=== PATIENT | male | born 1990 | race Caucasian/White ===

== ENCOUNTER 2024-06-08 23:55 | Emergency (ER) | payer OTHER ==
[~2024-06-08] VITALS: Ht 190.5 cm; Wt 104.3 kg
[2024-06-09] MEDS ORDERED: Ondansetron HCl 2 MG / ML 2ML Vial IV ONE (00:10)
[2024-06-09] MEDS ORDERED: Ketorolac Tromethamine 15mg Vial IV ONE (00:10)
[2024-06-09 00:41] LABS: Albumin, Blood 3.9 g/dL (3.4-5.0); Albumin/Globulin Ratio 1.1 (0.8-1.8); Bilirubin, Total 0.4 mg/dL (0.1-1.0); Bun/Creatinine Ratio 10.1 (12.0-20.0); Calcium, Blood 8.8 mg/dL (8.5-10.1); Creatinine, Blood 0.89 mg/dL (0.60-1.20); Globulin, Blood 3.7 g/dL (2.2-4.0); Potassium, Blood 3.4 mmol/L (3.5-5.5); Total Protein, Blood 7.6 g/dL (6.4-8.2)
[2024-06-09 00:49] LABS: BASOPHILS ABSOLUTE AUTO 0.11 K/mm3 (0.00-0.23); BASOPHILS PERCENT AUTO 1 % (0-2); EOSINOPHILS ABSOLUTE AUTO 0.14 K/mm3 (0.00-0.68); EOSINOPHILS PERCENT AUTO 1 % (0-6); Hematocrit 46.3 % (37.0-53.0); Hemoglobin 16.9 g/dL (13.5-17.5); IMMATURE GRAN PERCENT AUTO 1 % (0-1); LYMPHOCYTES ABSOLUTE AUTO 2.27 K/mm3 (0.84-5.20); LYMPHOCYTES PERCENT AUTO 21 % (21-46); MONOCYTES ABSOLUTE AUTO 0.82 K/mm3 (0.16-1.47); MONOCYTES PERCENT AUTO 7 % (4-13); Mean Corpuscular HGB 32.2 pg (26.0-34.0); Mean Corpuscular HGB Conc 36.5 g/dL (31.5-36.5); Mean Corpuscular Volume 88 fL (80-100); Mean Platelet Volume 10.1 fL (9.1-12.4); NEUTROPHILS ABSOLUTE AUTO 7.65 K/mm3 (1.96-9.15); NEUTROPHILS PERCENT AUTO 69 % (41-73); Platelet Count 257 K/mm3 (150-400); RDW Coefficient Variation 12.3 % (11.7-14.2); RDW Standard Deviation 39.9 fL (35.1-46.3); Red Blood Cell Count 5.25 M/mm3 (4.30-5.90); White Blood Cell Count 11.09 K/mm3 (4.00-11.30)
[2024-06-09] MEDS ORDERED: Acetaminophen 325 MG TABLET PO ONE (02:25)
[2024-06-09] MEDS ORDERED: Methocarbamol 500 MG Tab PO ONE (02:30)
[2024-06-09] MEDS ORDERED: FLONASE ALLERG9.9 ML (02:52)
[2024-06-09] MEDS ORDERED: MOTRIN IB200 MG PO (02:52)
== END 2024-06-09 03:05 | disposition other institution (70) ==
LOC: ER 23:55
PROVIDERS: Physician Assistant
DX: R51.9 Headache, unspecified (principal); H53.141 Visual discomfort, right eye
CPT/HCPCS: 70450; 70487; 80053; 85025; 93005; 93010; 96374; 96375; 99284; A9270; J1885; J2405; Q9967